=== PATIENT | male | born 1990 | race Caucasian/White ===

== ENCOUNTER 2016-12-24 13:00 | Emergency (ER) | payer SELFPAY ==
--- NOTE | 2016-12-24 13:41 | ER Document Report ---
ED Extremity Problem, Lower - General Chief Complaint: Foot Injury Stated Complaint: LEFT FOOT INJURY Time Seen by Provider: 12/24/16 13:34 Mode of Arrival: Ambulatory Information source: Patient Notes: 36-year-old male presents to ED for left foot pain. He states he was playing in basketball at about 6:00 when he rolled his foot inward. He has swelling and ecchymosis to the lateral aspect of the upper foot states the lateral aspect of the foot upper and lower. TRAVEL OUTSIDE OF THE [place] IN LAST 30 DAYS: No - HPI Patient complains to provider of: Injury, Pain, Swelling Location: Foot - left Occurred: Yesterday Where: Outdoors, Sports Onset/Duration: Gradual Quality of pain: Achy, Throbbing Severity: Moderate Pain Level: 4 Context: Twisted Recent injury: Yes Associated symptoms: Painful ambulation Exacerbated by: Movement, Walking Relieved by: Nothing - Related Data Allergies/Adverse Reactions: No Known Allergies Allergy (Verified 12/24/16 13:53) Past Medical History - General Information source: Patient - Social History Smoking Status: Former Smoker Cigarette use (# per day): No Chew tobacco use (# tins/day): No Smoking Education Provided: No Frequency of alcohol use: None Drug Abuse: None Occupation: plastics fabricator or welder Lives with: Parents Family History: Arthritis, CAD, COPD, CVA, Hyperlipidemia, Hypertension Patient has suicidal ideation: No Patient has homicidal ideation: No - Past Medical History Cardiac Medical History: Reports: None Pulmonary Medical History: Reports: None EENT Medical History: Reports: None Neurological Medical History: Reports: None Endocrine Medical History: Reports: None Renal/ Medical History: Reports: None Malignancy Medical History: Reports None GI Medical History: Reports: None Musculoskeltal Medical History: Reports None Skin Medical History: Reports None Psychiatric Medical History: Reports: Hx Anxiety Traumatic Medical History: Reports: None Infectious Medical History: Reports: None Surgical Hx: Negative Past Surgical History: Reports: None Review of Systems - Review of Systems Constitutional: No symptoms reported EENT: No symptoms reported Cardiovascular: No symptoms reported Respiratory: No symptoms reported Gastrointestinal: No symptoms reported Genitourinary: No symptoms reported Male Genitourinary: No symptoms reported Musculoskeletal: Other - Foot lateral pain and swelling and ecchymosis Skin: Change in color - [place] to the lateral aspect of the foot Hematologic/Lymphatic: No symptoms reported Neurological/Psychological: No symptoms reported Physical Exam - Vital signs Vitals: Temp Pulse Resp BP Pulse Ox 97.6 F 56 L 20 109/74 100 12/24/16 13:28 12/24/16 13:28 12/24/16 13:28 12/24/16 13:28 12/24/16 13:28 Interpretation: Normal - General General appearance: Appears well, Alert - HEENT Head: Normocephalic, Atraumatic Eyes: Normal Pupils: PERRL - Respiratory Respiratory status: No respiratory distress Chest status: Nontender Breath sounds: Normal Chest palpation: Normal - Cardiovascular Rhythm: Regular Heart sounds: Normal auscultation Murmur: No - Abdominal Inspection: Normal Distension: No distension Bowel sounds: Normal Tenderness: Nontender Organomegaly: No organomegaly - Back Back: Normal, Nontender - Extremities General upper extremity: Normal inspection, Nontender, Normal color, Normal ROM , Normal temperature General lower extremity: Normal ROM, Normal temperature, Normal weight bearing. No: Jules's sign Foot: Tender, Ecchymosis, Edema, Metatarsal compress. pain, No evidence of FB, Tender 5th metatarsal. No: Abrasion, Deformity, Instability, Laceration, Navicular tenderness, Puncture wound - Neurological Neuro grossly intact: Yes Cognition: Normal Orientation: AAOx4 [place] Coma Scale Eye Opening: Spontaneous [place] Coma Scale Verbal: Oriented [place] Coma Scale Motor: Obeys Commands [place] Coma Scale Total: 15 Speech: Normal Motor strength normal: LUE, RUE, LLE, RLE Sensory: Normal - Psychological Associated symptoms: Normal affect, Normal mood - Skin Skin Temperature: Warm Skin Moisture: Dry Skin Color: Normal, Ecchymosis - Lateral foot left Course - Vital Signs Vital signs: Temp Pulse Resp BP Pulse Ox 97.4 F 56 L 16 123/63 100 12/24/16 15:10 12/24/16 15:10 12/24/16 15:10 12/24/16 15:10 12/24/16 15:10 - Diagnostic Test Radiology reviewed: Image reviewed, Reports reviewed Procedures - Immobilization Left Foot Time completed: 15:05 Immobilizer type: Crutches, Post-op shoe Performed by: PCT Post-Proc Neuro Vasc Exam: Normal Alignment checked and good: Yes Discharge - Discharge Clinical Impression: Fracture of 5th metatarsal Qualifiers: Encounter type: initial encounter Fracture type: closed Fracture alignment: nondisplaced Laterality: left Qualified Code(s): S92.355A - Nondisplaced fracture of fifth metatarsal bone, left foot, initial encounter for closed fracture Condition: Stable Disposition: HOME, SELF-CARE Additional Instructions: Fracture You have a fracture. The typical broken bone requires only protection and sufficient time for healing. "Setting" is necessary only if the bones are crooked or out of position. The physician will re-assess you periodically to make certain that the bone heals without complications. It's important that you follow the instructions given you. The initial treatment is immobilization, elevation of the injury, and cold packs. Not all fractures require a cast. Depending on the location and type of fracture, immobilization may consist of a splint, cast, sling, bulky dressing , or simply rest. The length of time required for healing depends on the location and type of fracture, and on the age of the patient. The treatment plan the physician has outlined for you is customized to your fracture and health condition. Call the doctor or return at once if pain becomes severe, or if severe swelling or numbness develop. SPLINT PRECAUTIONS: A splint has been placed. This will protect the area while healing begins. Your problem does NOT normally require a cast. It MUST, however, be held still! Keep the splint on ALL THE TIME until instructed to remove it by the doctor. As you begin to use the area, be careful. You shouldn't do anything which causes discomfort -- you may disturb the injury even with the splint in place. After the initial period of rest and elevation, if splint does not prevent pain when you move, come back. You may require placement of a different splint , or a cast. If there is unexpected severe pain, or numbness, discoloration, or swelling beyond the splint, you should return at once. If you feel that the splint has broken or become loose, come back. USE OF CRUTCHES: The doctor has recommended that you not bear weight at this time. You will need to use crutches. Adjust the crutches so the tops come to about two inches under the armpit while you are standing upright. Use your hands -- not your armpits -- to support your weight. To get into a chair, support yourself with one crutch on the injured side. Hold the chair with the other hand, then lower yourself while putting all your weight on the good leg. Going up stairs is `good leg up, step up, then bring up crutches and bad leg.' Down stairs is `bad leg and crutches down, then bring good leg down.' If you develop numbness or swelling in an arm or hand, you are using the crutches incorrectly. Return if you are having any problems with the crutches. ICE & ELEVATION: Apply ice packs frequently against the painful area. Many different schedules are recommended, such as "20 minutes on, 20 minutes off" or "one hour ice, two hours rest." If you need to work, you may need to go longer between ice treatments. You should plan to have the area ice packed AT LEAST one- fourth of the time. The ice should be applied over the wrap, tape, or splint, or over a layer of cloth -- not directly against the skin. Some ice bags have a built-in cloth and can be put directly on the skin. Your injured part should be elevated as much as possible over the next 48 hours. Try to keep the injury above the level of the heart. Avoid use of the injured area. Elevation and rest will decrease the swelling. USE OF WNCO-WET-ZMELAEI IBUPROFEN: Ibuprofen (Advil, Nuprin, Medipren, Motrin IB) is a medication for fever and pain control. In addition, it has anti- inflammatory effects which may be beneficial, especially in the treatment of injuries. It's best to take ibuprofen with food. Persons with ulcer disease or allergy to aspirin should notify their physician of this before taking ibuprofen. Ibuprofen can be given every four to six hours, for a total of four doses daily. Age Pain or fever dose Antiinflammatory dose 6-8 yr 200 mg (1 tab) 200 mg (1 tab) 9-11 yr 200 mg (1 tab) 200-400 mg (1-2 tab) 11-14 yr 200-400 mg (1-2 tab) 400 mg (2 tab) 15-adult 400 mg (2 tab) 600 mg (3 tab) ORAL NARCOTIC MEDICATION: You have been given a prescription for pain control. This medication is a narcotic. It's best taken with food, as nausea can result if taken on an empty stomach. Don't operate machinery or drive within six hours of taking this medication. Do not combine this medicine with alcohol, or with any medication which can cause sedation (such as cold tablets or sleeping pills) unless you get permission from the physician. Narcotics tend to cause constipation. If possible, drink plenty of fluids and eat a diet high in fiber and fruits. Please be aware that prescription narcotics also have the potential for abuse. People become addicted to these medications because of the general sense of wellbeing that they induce. This feeling along with a significant reduction in tension, anxiety, and aggression provides a stimulating seductive quality to these drugs. Once your pain is under control, we encourage you to discard your unused narcotics. FOLLOW-UP CARE: If you have been referred to a physician for follow-up care, call the physician s office for an appointment as you were instructed or within the next two days. If you experience worsening or a significant change in your symptoms, notify the physician immediately or return to the Emergency Department at any time for re-evaluation. Prescriptions: Hydrocodone/Acetaminophen [[place] 5-325 mg Tablet] 1 tab PO TIDP PRN #10 tablet PRN Reason: Forms: Return to Work Referrals: THUY KAPADIA MD [ACTIVE STAFF] - Follow up as needed
--- NOTE | 2016-12-24 14:39 | RADIOLOGY REPORT (SQ) ---
EXAM DESCRIPTION: FOOT LEFT COMPLETE COMPLETED DATE/TIME: 12/24/2016 2:17 pm REASON FOR STUDY: PAIN AND INJURY COMPARISON: None. NUMBER OF VIEWS: Three views. TECHNIQUE: AP, lateral and oblique radiographic images acquired of the left foot. LIMITATIONS: None. FINDINGS: MINERALIZATION: Normal. BONES: Comminuted fracture involving the diaphysis of the 5th metatarsal without significant displace ment of the fracture fragment. No other fractures are identified. No dislocations are present. No worrisome bony lesions are noted JOINTS: No effusions. SOFT TISSUES: There is soft tissue swelling about the lateral aspect of the foot. No radiopaque fore ign body. OTHER: No other significant finding. IMPRESSION: Comminuted nondisplaced fracture involving the shaft of the 5th metatarsal the left foot . No other fractures are identified. No dislocations are present. There is soft tissue swelling ab out the lateral aspect of the foot. No radiopaque foreign body TECHNICAL DOCUMENTATION: JOB ID: [id number] [employer]- All Rights Reserved
[2016-12-24 15:16] VITALS: BP 123/63
== END 2016-12-24 15:15 | disposition home or self-care (01) ==
LOC: ER 13:00
DX: S92.355A Nondisplaced fracture of fifth metatarsal bone, left foot, initial encounter for closed fracture (principal); M79.672 Pain in left foot; X50.1XXA Overexertion from prolonged static or awkward postures, initial encounter; Y93.67 Activity, basketball; Z87.891 Personal history of nicotine dependence
CPT/HCPCS: 99283

== ENCOUNTER 2019-06-05 01:30 | Emergency (ER) | payer SELFPAY ==
--- NOTE | 2019-06-05 01:50 | ER Document Report ---
ED General - General Chief Complaint: Accidental Overdose Stated Complaint: OVERDOSE Time Seen by Provider: 06/05/19 01:45 Mode of Arrival: Medic Information source: Patient, Emergency Med Personnel Notes: This 28-year-old male presents to the emergency department with a history of overdose on Xanax and opiate. Apparently orally ingested 2 tablets which he believes were Xanax and opiate. He is not aware of the milligram strength. He was at his mother's home. He does not recall any of the events that preceded and awoke with EMS personnel standing around. Apparently the patient was un responsive at home EMS was called and upon arrival in assessment administered Narcan. The patient had a prompt response to the Narcan and became more awake alert and responsive. Agonal respirations resolved. Presently the patient states he feels fine, however complains that he is having a difficult time hearing. TRAVEL OUTSIDE OF THE [place] IN LAST 30 DAYS: No - Related Data Allergies/Adverse Reactions: No Known Allergies Allergy (Verified 12/24/16 13:53) Past Medical History - Social History Smoking Status: Current Every Day Smoker Family History: Arthritis, CAD, COPD, CVA, Hyperlipidemia, Hypertension Renal/ Medical History: Denies: Hx Peritoneal Dialysis Psychiatric Medical History: Reports: Hx Anxiety Review of Systems - Review of Systems Notes: Constitutional: Negative for fever. HENT: Negative for sore throat. Eyes: Negative for visual changes. Cardiovascular: Negative for chest pain. Respiratory: Negative for shortness of breath. Gastrointestinal: Negative for abdominal pain, vomiting or diarrhea. Genitourinary: Negative for dysuria. Musculoskeletal: Negative for back pain. Skin: Negative for rash. Neurological: + Decreased responsiveness 10 point ROS negative except as marked above and in HPI. Physical Exam - Vital signs Vitals: Temp 98.1 F 06/05/19 01:30 - Notes Notes: PHYSICAL EXAMINATION: GENERAL: Disheveled appearing 28-year-old male no acute distress alert and talking HEAD: Atraumatic, normocephalic. EYES: Pupils equal round and reactive to light, extraocular movements intact, sclera anicteric, conjunctiva are normal. ENT: nares patent, oropharynx clear without exudates. Moist mucous membranes. NECK: Normal range of motion, supple without lymphadenopathy LUNGS: Breath sounds clear to auscultation bilaterally and equal. No wheezes rales or rhonchi. HEART: Regular rate and rhythm without murmurs ABDOMEN: Soft, nontender, normoactive bowel sounds. No guarding, no rebound. No masses appreciated. EXTREMITIES: Normal range of motion, no pitting or edema. No cyanosis. NEUROLOGICAL: No focal neurological deficits. Moves all extremities spontaneously and on command. PSYCH: Normal mood, normal affect., Denies homicidal or suicidal ideation, denies auditory or visual hallucinations. SKIN: Warm, Dry, normal turgor, no rashes or lesions noted. Course - Re-evaluation Re-evalutation: 06/05/19 03:42 Patient was monitored in the emergency department for approximately 3 hours. He has had no further symptoms of symptoms and has been maintaining normal O2 sat. Review of laboratory data reveals no abnormalities. I discussed those findings and his risk with the patient and his father. They acknowledged understanding that he relapsed in his opioid addiction and that he is at risk for further difficulties without help. Father states that he is clinically with him for the next 4 days and that they will seek outpatient counseling. - Vital Signs Vital signs: Temp Pulse Resp BP Pulse Ox 98.1 F 18 110/71 93 06/05/19 01:30 06/05/19 03:52 06/05/19 03:52 06/05/19 03:51 - Laboratory Result Diagrams: 06/05/19 01:10 06/05/19 01:10 Laboratory results interpreted by me: 06/05/19 06/05/19 01:10 01:10 WBC 27.5 H RDW 15.1 H Seg Neuts % (Manual) 84 H Lymphocytes % (Manual) 12 L Abs Neuts (Manual) 23.1 H Sodium 147.3 H Potassium 5.1 H Carbon Dioxide 19 L Anion Gap 27 H Glucose 361 H Calcium 10.5 H Total Protein 8.9 H Albumin 5.6 H - EKG Interpretation by [place] EKG shows normal: Sinus rhythm, [place], Intervals, QRS Complexes, ST-T Waves Rate: Tachycardia - rate 108 Discharge - Discharge Clinical Impression: Opioid overdose Qualifiers: Encounter type: initial encounter Injury intent: accidental or unintentional Qualified Code(s): T40.2X1A - Poisoning by other opioids, accidental (unintentional), initial encounter Condition: Good Disposition: HOME, SELF-CARE Instructions: Instructions for Home Care Following a Drug Overdose ([facility])
--- NOTE | 2019-06-05 01:52 | ER Document Report ---
ED Substance Abuse / Acc. OD - General Chief Complaint: Accidental Overdose Stated Complaint: OVERDOSE Time Seen by Provider: 06/05/19 01:45 Mode of Arrival: Medic TRAVEL OUTSIDE OF THE [place] IN LAST 30 DAYS: No - Related Data Allergies/Adverse Reactions: No Known Allergies Allergy (Verified 12/24/16 13:53) Past Medical History - General Information source: Patient, Emergency Med Personnel - Social History Family History: Arthritis, CAD, COPD, CVA, Hyperlipidemia, Hypertension Renal/ Medical History: Denies: Hx Peritoneal Dialysis Psychiatric Medical History: Reports: Hx Anxiety Physical Exam - Vital signs Vitals: Temp 98.1 F 06/05/19 01:30 Course - Vital Signs Vital signs: Temp Pulse Resp BP Pulse Ox 98.1 F 18 110/71 93 06/05/19 01:30 06/05/19 03:52 06/05/19 03:52 06/05/19 03:51 - Laboratory Result Diagrams: 06/05/19 01:10 06/05/19 01:10 Laboratory results interpreted by me: 06/05/19 06/05/19 01:10 01:10 WBC 27.5 H RDW 15.1 H Seg Neuts % (Manual) 84 H Lymphocytes % (Manual) 12 L Abs Neuts (Manual) 23.1 H Sodium 147.3 H Potassium 5.1 H Carbon Dioxide 19 L Anion Gap 27 H Glucose 361 H Calcium 10.5 H Total Protein 8.9 H Albumin 5.6 H Discharge - Discharge Clinical Impression: Opioid overdose Qualifiers: Encounter type: initial encounter Injury intent: accidental or unintentional Qualified Code(s): T40.2X1A - Poisoning by other opioids, accidental (unintentional), initial encounter Condition: Good Disposition: HOME, SELF-CARE Instructions: Instructions for Home Care Following a Drug Overdose ([facility])
[2019-06-05 01:57] LABS: HEMATOCRIT 48.8 % (37.9-51.0); HEMOGLOBIN 15.8 g/dL (13.5-17.0); MEAN CORPUSCULAR HEMOGLOBIN 29.9 pg (27.0-33.4); MEAN CORPUSCULAR HGB CONC 32.4 g/dL (32.0-36.0); MEAN CORPUSCULAR VOLUME 93 fl (80-97); PLATELET COUNT 421 10^3/uL (150-450); RED BLOOD COUNT 5.28 10^6/uL (4.35-5.55); RED CELL DISTRIBUTION WIDTH 15.1 % (11.5-14.0); WHITE BLOOD COUNT 27.5 10^3/uL (4.0-10.5)
[2019-06-05 02:29] LABS: ABSOLUTE LYMPHOCYTES# (MANUAL) 3.3 10^3/uL (0.5-4.7); ABSOLUTE MONOCYTES # (MANUAL) 0.8 10^3/uL (0.1-1.4); BASOPHILS % (MANUAL) 0 % (0-2); EOSINOPHILS % (MANUAL) 1 % (0-6); LYMPHOCYTES % (MANUAL) 12 % (13-45); MONOCYTES % (MANUAL) 3 % (3-13); SEGMENTED NEUTROPHILS % (MAN) 84 % (42-78); TOTAL CELLS COUNTED 100
[2019-06-05 02:31] LABS: ANISOCYTOSIS SLIGHT; PLATELET COMMENT ADEQUATE; TEAR DROP CELLS SLIGHT; TOXIC GRANULATION 1+
[2019-06-05 02:39] LABS: ALBUMIN 5.6 g/dL (3.5-5.0); ALKALINE PHOSPHATASE 61 U/L (38-126); ASPARTATE AMINO TRANSFERASE 38 U/L (17-59); BILIRUBIN,DIRECT 0.2 mg/dL (0.0-0.4); BILIRUBIN,TOTAL 0.4 mg/dL (0.2-1.3); BLOOD UREA NITROGEN 10 mg/dL (7-20); CALCIUM 10.5 mg/dL (8.4-10.2); GLUCOSE 361 mg/dL (75-110); POTASSIUM 5.1 mmol/L (3.6-5.0); TOTAL PROTEIN 8.9 g/dL (6.3-8.2)
[2019-06-05 02:44] LABS: CARBON DIOXIDE 19 mmol/L (22-30); CHLORIDE 101 mmol/L (98-107)
[2019-06-05 02:45] LABS: ANION GAP 27 (5-19)
[2019-06-05 04:02] VITALS: BP 110/71
[2019-06-05 04:13] LABS: URINE AMPHETAMINES SCREEN NEGATIVE; URINE BARBITURATES SCREEN NEGATIVE; URINE COCAINE SCREEN NEGATIVE; URINE METHADONE SCREEN NEGATIVE; URINE PHENCYCLIDINE SCREEN NEGATIVE
[2019-06-05 04:16] LABS: URINE BENZODIAZEPINES SCREEN UNCONFIRMED POSITIVE; URINE MARIJUANA (THC) SCREEN UNCONFIRMED POSITIVE
--- NOTE | 2019-06-05 08:42 | EKG REPORT ---
SEVERITY:- OTHERWISE NORMAL ECG - SINUS TACHYCARDIA : Confirmed by: Chris Hurley MD 05-Jun-2019 08:41:27
== END 2019-06-05 04:03 | disposition home or self-care (01) ==
LOC: ER 01:30
DX: T40.2X1A Poisoning by other opioids, accidental (unintentional), initial encounter (principal); T42.4X1A Poisoning by benzodiazepines, accidental (unintentional), initial encounter; X58.XXXA Exposure to other specified factors, initial encounter; F17.200 Nicotine dependence, unspecified, uncomplicated
CPT/HCPCS: 36415; 80053; 80307; 85025; 93005; 93010; 99284